=== PATIENT | female | born 1995 | race African-American/Black ===

== ENCOUNTER 2017-10-09 22:00 | Emergency (ER) | payer BC, OTHER ==
[~2017-10-09 22:00] MED LIST: MACR100C PO
[2017-10-09 22:03] VITALS: BP 109/79; PULSE 112; RESP 16; TEMP 98; O2SAT 100
[2017-10-09] MEDS ORDERED: VIST50CA PO (22:52)
--- NOTE | 2017-10-09 22:58 | PD ---
HPI Chief Complaint: Anxiety Time Seen by Provider: 22:12 Travel History International Travel<30 days: No Contact w/Intl Traveler<30days: No Traveled to known affect area: No History of Present Illness HPI 22-year-old black female presents to emergency department requesting treatment for anxiety. She states that she has been anxious for the past week. She had just gotten over a cold. She's had a history of anxiety and the past but has not taken any medicine. She states that she was supposed to follow-up with Will Padilla for anxiety in the past but never has. No suicidal ideation. No homicidal ideation. She states that her cold symptoms have now abated. PFSH Past Medical History ADHD: No Anemia: Yes Cancer: No Diabetes: No Diminished Hearing: No Psychiatric: No Immunizations Current: Yes Migraines: No Seizures: No Thyroid Disease: No Ulcer: No Tetanus Vaccination: < 5 Years ?: Not LMP: 09/27 : 2 Miscarriage: 2 Past Surgical History Appendectomy: Yes (age of 4) Cholecystectomy: No Social History Alcohol Use: No Tobacco Use: Yes Substance Use: Yes Allergies-Medications (Allergen,Severity, Reaction): Coded Allergies: No Known Allergies (Verified , 05/23/16) Reported Meds & Prescriptions Reported Meds & Active Scripts Active Vistaril (Hydroxyzine Pamoate) 50 Mg Cap 50 Mg PO QID PRN Review of Systems General / Constitutional: No: Fever Eyes: No: Visual changes HENT: No: Headaches Cardiovascular: No: Chest Pain or Discomfort Respiratory: No: Shortness of Breath Gastrointestinal: No: Abdominal Pain Genitourinary: No: Dysuria Musculoskeletal: No: Pain Skin: No Rash Neurologic: No: Weakness Psychiatric: Positive: Anxiety, No: Depression, Homicidal Ideation Endocrine: No: Polydipsia Hematologic/Lymphatic: No: Easy Bruising Physical Exam Narrative GENERAL: This is a well-nourished, well-developed patient, in no apparent distress. SKIN: No rashes, ecchymoses or lesions. Warm and dry. HEAD: Atraumatic. Normocephalic. EYES: PERRL, EOMI, no discharge or injection. No scleral icterus. EARS: Clear NOSE: Nasal turbinates appear normal. THROAT: Mucosa pink and moist. Airway patent. NECK: Trachea midline. supple, moves head freely. LUNGS: Clear to auscultation. CV: Regular in rhythm. ABDOMEN: Soft nontender. EXT: No clubbing cyanosis or edema. Data Data Last Documented VS Vital Signs Date Time Temp Pulse Resp B/P (MAP) Pulse Ox O2 Delivery O2 Flow Rate FiO2 10/09/17 22:03 98.0 112 16 109/79 (89) 100 Room Air Orders Orders Ed Discharge Order (10/09/17 22:51) MDM Medical Decision Making Medical Screen Exam Complete: Yes Emergency Medical Condition: Yes Medical Record Reviewed: Yes Differential Diagnosis Differential diagnoses: Anxiety, depression, mood disorder, malingering Narrative Course This is anxiety Diagnosis Primary Impression: anxiety Referrals: [facility] (Out patient) 1 day Patient Instructions: General Instructions Additional Instructions: Rest. Vistaril. Follow-up with Will Padilla tomorrow. Med/Other Pt SpecificInfo: Prescription(s) given Scripts Hydroxyzine Pamoate (Vistaril) 50 Mg Cap 50 MG PO QID Y for ANXIETY, #20 CAP 0 Refills Prov: Keyla Badillo DO 10/09/17 Disposition: 01 DISCHARGE HOME Condition: Stable Cain Canchola Oct 09, 2017 22:58
== END 2017-10-09 23:15 | disposition home or self-care (01) ==
LOC: NEPD 22:00
DX: F41.9 Anxiety disorder, unspecified (principal); F19.90 Other psychoactive substance use, unspecified, uncomplicated; Z86.2 Personal history of diseases of the blood and blood-forming organs and certain disorders involving the immune mechanism; Z72.0 Tobacco use; Z98.890 Other specified postprocedural states
CPT/HCPCS: 99283